=== PATIENT | male | born 1970 | race Caucasian/White ===

== ENCOUNTER 2021-09-08 14:08 | Emergency (ER) | payer OTHER, SELFPAY ==
[2021-09-08 14:24] VITALS: BP 108/72; PULSE 80; RESP 18; TEMP 37.1; O2SAT 94; BMI 27.3
--- NOTE | 2021-09-08 14:27 | XRR_ITS ---
PROCEDURE INFORMATION: Exam: XR Chest Exam date and time: 09/08/2021 2:27 PM Age: 51 years old Clinical indication: Dyspnea TECHNIQUE: Imaging protocol: XR of the chest. Views: 1 view. COMPARISON: CR Chest 1 [place] [id number] 11/05/2019 6:00 PM FINDINGS: Lungs: Interval development of patchy airspace disease and ground-glass opacification in the left lower lobe. Pleural spaces: No pleural effusion. No pneumothorax. Heart/Mediastinum: The cardiac silhouette and mediastinal contours are unremarkable. Bones/joints: Unremarkable for age. XR/XR chest 1V portable [id number] IMPRESSION: Interval development of patchy airspace disease and ground-glass opacification in the left lower lobe. Findings are suspicious for pneumonia, including atypical and viral organisms. Recommend followup chest x-ray to ensure resolution. Radiation Dose CTDIVOL = (mGy): DLP = (mGy-cm)
[2021-09-08 14:43] VITALS: BP 108/72; PULSE 79; RESP 18; TEMP 37.4; O2SAT 95
--- NOTE | 2021-09-08 14:46 | ED_ITS ---
HPI - General Adult General: Chief complaint: Fever Stated complaint: COVID+//DIFF BREATHING,COUGH,FEVER@100-105,FATIGUE Time Seen by Provider: 09/08/21 14:24 History of Present Illness: HPI narrative: Patient is a 51-year-old male with history of smoking who presents the emergency room after he was diagnosed with Covid 14 days ago. Patient says that he is recovering well wanted to check on his dyspnea and cough today. Patient is followed outpatient by provider and previously completed course of Zithromax. Patient reports occasional cough and fatigue. He has a portable pulse ox at home with consistent readings greater than 90%. No complaints of diarrhea, decreased PO intake, dehydration nausea or vomiting. Onset:14 days ago Duration:14 Location:home Severity: moderate Review of Systems Narrative: Constitutional: No fever, no chills. HEENT: No vision changes CV: No chest pain, no palpitations PULM: +cough, +dyspnea. GI: No abdominal pain, no N/V/D. : No dysuria MSKEL: No muscle pain SKIN: No new rashes, no lesions. NEURO: No headache, no focal weakness. HEME: No visible bruises PSYCH: Normal mood PFSH ED PFSH: Social History (Updated 05/04/20 @ 15:35 by Monse Navarro LPN) Smoking and tobacco status: heavy tobacco smoker smokeless tobacco Smokeless tobacco user: chewing tobacco and snuff Smokeless tobacco details: a can a day to a can and a half Alcohol intake: never Adopted: No Caregiver/support person: No Lives independently: No Household members: spouse Marital status: Current occupational status: employed History of recent travel: No Sexually active: Yes Current gender identity: Male Physical Exam Narrative: EXAM NARRATIVE: Head: Atraumatic Eyes: PERRL, conjunctiva without injection ENT: Mucous membrane moist NECK: Supple, ROM intact LUNGS: LCTAB, no crackles/rhonchi CV: RRR ABDOMEN: Soft, nontender in all quadrants EXTREMITY: Normal ROM SKIN: No rash or erythema NEURO: Awake and alert, no focal motor deficits PSYCH: Normal mood and affect Course Vital Signs: Vital signs: Vital Signs Temperature 98.7 F 09/08/21 15:28 Pulse Rate 81 09/08/21 15:28 Respiratory Rate 18 09/08/21 15:28 Blood Pressure 110/73 09/08/21 15:28 Pulse Oximetry 95 09/08/21 15:28 MDM - General Adult MDM Narrative: Medical decision making narrative: 51-year-old male presenting to the emergency room for evaluation of cough and shortness of breath. Patient's 14 days out from Covid. Continues to be satting at greater than 95% on room air. Chest x-ray showed mild Covid pneumonia. Patient is not candidate for BAM therapy at this time. Patient has a pulse ox at home. Instructed to follow-up with PCP at this time. No suspicion for superimposed bacterial. Disposition: Discharge. Patient counseled regarding diagnostic impression, treatment plan. Patient given ED strict return precautions to return for continuation, worsening, or development of new symptoms. Instructed to f/u w/ PCP regarding symptoms today. Patient verbalized understanding. Lab Data: Labs: Lab Results 09/08/21 09/08/21 15:00 15:00 SARS-CoV-2 RNA (RT -PCR) Detected A (NOT DETECTED) SARS-CoV-2 Ag (Rap id) Negative (Negative) Imaging Data^: Other Imaging: Radiologist's impression: [address] [id number] ReportSigned Patient: Peng Muller #: [id number]: [id number]#:[id number]/Sex: 51 / MADM Date: 09/08/21Loc: ERRoom/Bed:Attending Dr: Ordering Provider/Ordering MD: Keyla Marie MD Date of Service: 09/08/21 Procedure(s): XR chest 1V portable [id number] Accession Number(s): [id number] Report Number: [id number] PROCEDURE INFORMATION: Exam: XR Chest Exam date and time: 09/08/2021 2:27 PM Age: 51 years old Clinical indication: Dyspnea TECHNIQUE: Imaging protocol: XR of the chest. Views: 1 view. COMPARISON: CR Chest 1 [place] [id number] 11/05/2019 6:00 PM FINDINGS: Lungs: Interval development of patchy airspace disease and ground-glass opacification in the left lower lobe. Pleural spaces: No pleural effusion. No pneumothorax. Heart/Mediastinum: The cardiac silhouette and mediastinal contours are unremarkable. Bones/joints: Unremarkable for age. XR/XR chest 1V portable [id number] IMPRESSION: Interval development of patchy airspace disease and ground-glass opacification in the left lower lobe. Findings are suspicious for pneumonia, including atypical and viral organisms. Recommend followup chest x-ray to ensure resolution. Radiation Dose CTDIVOL = (mGy): DLP = (mGy-cm) Dictated By:Kandace Bunch MDSigned By:Kandace Bunch MDSigned Date/Time:09/08/21 1538DD/ 1427 Discharge Plan Discharge Patient Disposition: Home Clinical Impression: COVID-19, Cough Condition: Stable Prescriptions: No Action mupirocin 2 % ointment 1 applic TOPICAL BID Qty: 22 RF: 1 azithromycin 250 mg tablet See Rx Instructions PO .COMPLEX Qty: 6 RF: 0 dexamethasone [Decadron] 6 mg tablet 6 mg PO DAILY Qty: 6 RF: 0 ondansetron HCl 4 mg tablet 4 mg PO Q6H PRN (Reason: nausea and vomiting) 5 Days Qty: 14 RF: 0 Discharge Orders: Discharge ED (Routine); Ordered 09/08/21 Ordered By: Keyla Marie Referrals: Jorje Lopez FNP [Primary Care Provider] - Discharge Diet: Advance as tolerated Discharge Activity: Resume usual activity Patient Instructions: SARS (Severe Acute Respiratory Syndrome) (ED) Activity Restrictions/Additional Instructions: Come back to the emergency room if your symptoms worsen, have any shortness of breath, fever/chills, dehydration, inability tolerate p.o., any difficulty breathing, or any new or concerning complaints. 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
[2021-09-08] MEDS: acetaminophen 500 mg Tablet 1000 MG PO (14:55)
[2021-09-08 15:28] VITALS: BP 110/73; PULSE 81; RESP 18; TEMP 37.1; O2SAT 95
[2021-09-08 15:40] LABS: SARS Covid-2 Antigen Negative (Negative)
[2021-09-11 22:43] LABS: Quest SARS-CoV-2 RNA DETECTED (NOT DETECTED)
--- NOTE | 2021-09-12 09:30 | PC.NURSE ---
Pt returned call. He was notified of COVID (+). Encouraged him to maintain fluid intake, hand washing and rest
== END 2021-09-08 15:31 | disposition home or self-care (01) ==
PROVIDERS: Emergency Provider Emergency Medicine; PCP Registered Nurse
DX: U07.1 COVID-19 (principal); F17.220 Nicotine dependence, chewing tobacco, uncomplicated
CPT/HCPCS: 71045; 87426; 87635; 99283